=== PATIENT | female | born 1975 | race Caucasian/White ===

== ENCOUNTER 2016-05-22 11:17 | Emergency (ER) | payer BC, SELFPAY ==
[~2016-05-22] VITALS: Ht 162.6 cm; Wt 113.4 kg
[~2016-05-22 11:17] MED LIST: CIPR500T89 PO; COMP1TAB PO; FLAG500T PO; OMEP10CASR PO; PANT40TA2 PO; PERC5TAB6 PO; REGL10TA6 PO; SIME40TA PO; SUCR1TA PO; TRAM50TA2 PO; ZANT1TAB PO; ZOFR20TA PO
[2016-05-22] MEDS ORDERED: LEXA1TAB PO (11:26)
[2016-05-22] MEDS ORDERED: methylPREDNISolone INJ 40 MG/1 ML VIAL (J2920) IV ONE (13:30)
[2016-05-22] MEDS ORDERED: diphenhydrAMINE INJ 50MG/ML VIAL (J1200) IV ONE (13:30)
[2016-05-22] MEDS ORDERED: METOCLOPRAMIDE INJ 10MG/2ML VIAL (J2765) IV ONE (13:30)
--- NOTE | 2016-05-22 13:53 | REP ---
CT Head without contrast HISTORY: Headache COMPARISON: None There is no intraparenchymal hemorrhage, acute infarct, mass or midline shift. The ventricular system is normal in appearance. There is no extra cerebral collection. There is no fracture. The visualized sinuses are clear. IMPRESSION: There is no intracranial lesion. Signed by Tucker Castro MD 05/22/2016 01:44 P
[2016-05-22] MEDS ORDERED: NS 1,000 ML IV ONE (14:15)
[2016-05-22 14:26] LABS: BLOOD UREA NITROGEN 12 MG/DL (7-18); CALCIUM LEVEL 9.1 MG/DL (8.5-10.1); CARBON DIOXIDE LEVEL 27 MEQ/L (21-32); CHLORIDE LEVEL 107 MEQ/L (98-107); CREATININE FOR GFR 0.78 MG/DL (0.55-1.02); GLUCOSE, FASTING 98 MG/DL (70-105); POTASSIUM SERUM 5.1 MEQ/L (3.5-5.1); SODIUM LEVEL 141 MEQ/L (136-145)
[2016-05-22 14:29] LABS: BASO % 0.3 % (0.0-1.0); EOS # 0.2 K/mm3 (0.0-0.50); EOS % 2.6 % (0.0-3.0); LARGE UNSTAINED CELL # 0.2 K/mm3 (0.0-0.4); LARGE UNSTAINED CELL % 1.7 % (0.0-4.0); LYMPH # 2.2 K/mm3 (1.5-4.5); LYMPH % 24.8 % (24.0-44.0); MEAN CORPUSCULAR HEMOGLOBIN 30.1 pg (27.0-33.0); MEAN CORPUSCULAR HGB CONC 33.7 g/dl (32.0-36.5); MEAN CORPUSCULAR VOLUME 89.3 fl (80.0-96.0); MONO # 0.6 K/mm3 (0.0-0.8); MONO % 6.1 % (0.0-5.0); NEUTROPHILS # 5.8 K/mm3 (1.8-7.7); NEUTROPHILS % 64.4 % (36.0-66.0); PLATELET COUNT, AUTOMATED 270 k/mm3 (150-450); RED CELL DISTRIBUTION WIDTH 12.3 % (11.5-14.5)
[2016-05-22 14:38] LABS: ANION GAP 7 MEQ/L (8-16)
[2016-05-22 15:19] VITALS: BP 124/83
[2016-05-23] MEDS ORDERED: KETO10TAB PO (08:23)
== END 2016-05-22 15:45 | disposition home or self-care (01) ==
LOC: M ED 13:18
DX: G43.109 Migraine with aura, not intractable, without status migrainosus (principal); Z91.030 Bee allergy status; Z79.899 Other long term (current) drug therapy
CPT/HCPCS: 70450; 80048; 85025; 86140; 96361; 96374; 96375; 99282; J1200; J2765; J2920

== ENCOUNTER 2016-05-23 07:08 | Emergency (ER) | payer SELFPAY ==
[~2016-05-23] VITALS: Ht 162.6 cm; Wt 113.4 kg
[~2016-05-23 07:08] MED LIST changes: +LEXA1TAB PO
[2016-05-23] MEDS ORDERED: ACETAMINOPHEN 325 MG TAB PO ONE (07:45)
[2016-05-23] MEDS ORDERED: KETOROLAC 30 MG/ML VIAL (J1885) IM ONE (07:45)
[2016-05-23] MEDS ORDERED: KETO10TAB PO (08:23)
[2016-05-23 08:30] VITALS: BP 146/83
== END 2016-05-23 08:32 | disposition home or self-care (01) ==
LOC: M ED 07:42
DX: G43.909 Migraine, unspecified, not intractable, without status migrainosus (principal); F41.9 Anxiety disorder, unspecified; F32.9 Major depressive disorder, single episode, unspecified; F17.210 Nicotine dependence, cigarettes, uncomplicated; Z88.2 Allergy status to sulfonamides; Z91.030 Bee allergy status; Z91.048 Other nonmedicinal substance allergy status; Z79.899 Other long term (current) drug therapy
CPT/HCPCS: 96372; 99282; J1885

== ENCOUNTER 2016-06-11 06:40 | Emergency (ER) | payer BC, SELFPAY ==
[~2016-06-11] VITALS: Ht 162.6 cm; Wt 113.4 kg
[~2016-06-11 06:40] MED LIST changes: +KETO10TAB PO
[2016-06-11] MEDS ORDERED: ONDANSETRON 4MG/2ML VIAL (J2405) IV ONE (08:00)
[2016-06-11] MEDS ORDERED: MORPHINE 4 MG/ML 1ML SYRINGE IV PRN (08:00)
[2016-06-11] MEDS ORDERED: NS 1,000 ML IV ONE (08:00)
[2016-06-11 08:23] LABS: BASO % 0.4 % (0.0-1.0); EOS # 0.3 K/mm3 (0.0-0.50); EOS % 3.6 % (0.0-3.0); LARGE UNSTAINED CELL # 0.1 K/mm3 (0.0-0.4); LARGE UNSTAINED CELL % 1.5 % (0.0-4.0); LYMPH # 1.7 K/mm3 (1.5-4.5); LYMPH % 21.3 % (24.0-44.0); MEAN CORPUSCULAR HEMOGLOBIN 30.6 pg (27.0-33.0); MEAN CORPUSCULAR VOLUME 90.1 fl (80.0-96.0); MONO # 0.5 K/mm3 (0.0-0.8); MONO % 6.4 % (0.0-5.0); NEUTROPHILS % 66.8 % (36.0-66.0); PLATELET COUNT, AUTOMATED 255 k/mm3 (150-450); RED CELL DISTRIBUTION WIDTH 12.4 % (11.5-14.5); WHITE BLOOD COUNT 7.4 K/mm3 (4.0-10.0)
[2016-06-11 08:27] LABS: CONTROL LINE HCG INT CTR LINE PRESENT
--- NOTE | 2016-06-11 08:32 | REP ---
Clinical: Acute abdominal pain. Technique: Upright view of the chest with supine and upright views of the abdomen and pelvis. Findings: Frontal upright view of the chest demonstrates no acute cardiopulmonary process or free air below the diaphragm to suspect pneumoperitoneum. Supine and upright views of the abdomen and pelvis demonstrate nonspecific bowel gas pattern without obstruction or perforation. No organomegaly. No abnormal calcifications. Skeletal structures normal for age. Impression: Nonspecific bowel gas pattern. Signed by Ghassan Hart MD 06/11/2016 08:23 A
[2016-06-11 08:38] LABS: ALBUMIN 3.5 GM/DL (3.2-5.2); ALBUMIN/GLOBULIN RATIO 0.95 (1.00-1.93); ALKALINE PHOSPHATASE 60 U/L (45-117); ALT/SGPT 16 U/L (12-78); ANION GAP 6 MEQ/L (8-16); AST/SGOT 15 U/L (15-37); BILIRUBIN,DIRECT < 0.1 MG/DL (0.0-0.2); BILIRUBIN,TOTAL 0.4 MG/DL (0.2-1.0); BLOOD UREA NITROGEN 11 MG/DL (7-18); CARBON DIOXIDE LEVEL 25 MEQ/L (21-32); CHLORIDE LEVEL 109 MEQ/L (98-107); CREATININE FOR GFR 0.83 MG/DL (0.55-1.02); GLOMERULAR FILTRATION RATE > 60.0 (>58); GLUCOSE, FASTING 103 MG/DL (70-105); POTASSIUM SERUM 4.4 MEQ/L (3.5-5.1); SODIUM LEVEL 140 MEQ/L (136-145); TOTAL PROTEIN 7.2 GM/DL (6.4-8.2)
[2016-06-11] MEDS ORDERED: GASTROGRAFIN SOLUTION 30ML PO ONE (09:45)
[2016-06-11] MEDS ORDERED: GASTROGRAFIN SOLUTION 30ML (Q9963) As Ordered ONE (09:45)
[2016-06-11] MEDS ORDERED: GASTROGRAFIN SOLUTION 30ML (Q9963) PO ONE (10:15)
[2016-06-11] MEDS ORDERED: ISOVUE-370 76% 100ML VIAL (Q9967) As Ordered ONE (11:08)
--- NOTE | 2016-06-11 11:39 | REP ---
Clinical: Lower abdominal pain. Diverticulitis. Technique: Axial contrast enhanced images from the lung bases to the pubic symphysis using oral and 100 ml Isovue 370 intravenous contrast material with coronal and sagittal re-formations. Comparison: 03/29/2015. Findings: Lung bases clear. Visualized heart and pericardium normal. Mild fatty infiltration to the liver suggested without focal hepatic lesion. Spleen, pancreas, bilateral adrenal glands and kidneys are normal. The patient is status post cholecystectomy. The enteric system is without obstruction or acute inflammatory process no significant diverticulosis or diverticulitis noted. Pelvis demonstrates normal bladder and age-appropriate uterus/adnexa. No pelvic fluid or ascites. No free air. No intraperitoneal or retroperitoneal adenopathy. Abdominal aorta and vasculature normal. Musculoskeletal structures without focal osseous abnormality. Impression: No acute intra-abdominal or pelvic pathology appreciated. Signed by Ghassan Hart MD 06/11/2016 11:31 A
[2016-06-11] MEDS ORDERED: TRAM50TA2 PO (12:21)
[2016-06-11 12:56] VITALS: BP 118/56
--- NOTE | 2016-06-12 20:38 | ECGEPIP ---
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
== END 2016-06-11 12:57 | disposition home or self-care (01) ==
LOC: M ED 08:26
DX: R07.89 Other chest pain (principal); R10.10 Upper abdominal pain, unspecified; F33.9 Major depressive disorder, recurrent, unspecified; Z88.2 Allergy status to sulfonamides; Z91.030 Bee allergy status; Z91.048 Other nonmedicinal substance allergy status; Z87.19 Personal history of other diseases of the digestive system
CPT/HCPCS: 74022; 74177; 80048; 80076; 82550; 82553; 83605; 83690; 84703; 85025; 93005; 93041; 94760; 96374; 96375; 99285; J2405; Q9963; Q9967

== ENCOUNTER → 2016-11-12 | Outpatient (CLI) | payer BC ==
[~2016-11-12] MED LIST changes: +CIPR-249 PO; -CIPR500T89 PO; +PERC5TAB12 PO; -PERC5TAB6 PO
== END ==
LOC: M LAB 14:15
DX: R76.11 Nonspecific reaction to tuberculin skin test without active tuberculosis (principal)

== ENCOUNTER → 2017-01-01 | Outpatient (REF) | payer BC ==
[~2017-01-01] MED LIST changes: +DOXY-278 PO
== END ==
LOC: M SFHCCAPE 13:33
PROVIDERS: ATTEND Physician Assistant
DX: H66.001 Acute suppurative otitis media without spontaneous rupture of ear drum, right ear (principal)

== ENCOUNTER → 2017-01-31 | Outpatient (CLI) | payer BC ==
[2017-01-31 09:15] LABS: BASO # 0.1 10^3/uL (0.0-0.2); BASO % 0.6 % (0.0-1.0); EOS # 0.3 10^3/uL (0.0-0.50); IMMATURE GRANULOCYTE % 0.8 % (0-0); LYMPH # 2.5 10^3/uL (1.5-4.5); LYMPH % 28.1 % (24.0-44.0); MEAN CORPUSCULAR HEMOGLOBIN 30.2 pg (27.0-33.0); MEAN CORPUSCULAR HGB CONC 33.6 g/dl (32.0-36.5); MEAN CORPUSCULAR VOLUME 89.9 fl (80.0-96.0); MONO # 0.6 10^3/uL (0.0-0.8); MONO % 6.6 % (0.0-5.0); NEUTROPHILS # 5.4 10^3/uL (1.8-7.7); NEUTROPHILS % 60.9 % (36.0-66.0); PLATELET COUNT, AUTOMATED 277 10^3/uL (150-450); RED CELL DISTRIBUTION WIDTH 12.7 % (11.5-14.5); WHITE BLOOD COUNT 8.9 10^3/uL (4.0-10.0)
[2017-01-31 09:41] LABS: ALBUMIN 3.8 GM/DL (3.2-5.2); ALBUMIN/GLOBULIN RATIO 1.19 (1.00-1.93); ALKALINE PHOSPHATASE 67 U/L (45-117); ALT/SGPT 17 U/L (12-78); ANION GAP 9 MEQ/L (8-16); AST/SGOT 14 U/L (7-37); BILIRUBIN,TOTAL 0.5 MG/DL (0.2-1.0); BLOOD UREA NITROGEN 11 MG/DL (7-18); CALCIUM LEVEL 9.1 MG/DL (8.5-10.1); CARBON DIOXIDE LEVEL 24 MEQ/L (21-32); CHLORIDE LEVEL 106 MEQ/L (98-107); CHOLESTEROL LEVEL 252 MG/DL (<200); CREATININE FOR GFR 0.89 MG/DL (0.55-1.02); FREE T4 1.13 NG/DL (0.76-1.46); GLOMERULAR FILTRATION RATE > 60.0 (>58); GLUCOSE, FASTING 128 MG/DL (70-105); POTASSIUM SERUM 4.5 MEQ/L (3.5-5.1); SODIUM LEVEL 139 MEQ/L (136-145); TRIGLYCERIDES LEVEL 159 MG/DL (<150)
== END ==
LOC: M LAB 08:07
PROVIDERS: ATTEND Physician Assistant
DX: E78.5 Hyperlipidemia, unspecified (principal); E66.01 Morbid (severe) obesity due to excess calories

== ENCOUNTER 2017-02-03 15:51 | Emergency (ER) | payer BC ==
[~2017-02-03] VITALS: Ht 157.5 cm; Wt 120.5 kg
[2017-02-03 15:51] VITALS: BP 127/86
[~2017-02-03 15:51] MED LIST changes: -DOXY-278 PO
[2017-02-03] MEDS ORDERED: DOXY-278 PO (18:12)
== END 2017-02-03 18:21 | disposition home or self-care (01) ==
LOC: M ED 15:51
DX: L03.818 Cellulitis of other sites (principal); Z87.2 Personal history of diseases of the skin and subcutaneous tissue; Z87.891 Personal history of nicotine dependence; Z91.030 Bee allergy status; Z91.89 Other specified personal risk factors, not elsewhere classified; Z88.1 Allergy status to other antibiotic agents

== ENCOUNTER 2017-02-05 06:21 | Emergency (ER) | payer BC ==
[~2017-02-05] VITALS: Ht 162.6 cm; Wt 120.0 kg
[~2017-02-05 06:21] MED LIST changes: +DOXY-278 PO
[2017-02-05 06:43] VITALS: BP 161/76
[2017-02-05] MEDS ORDERED: CLEO300C2 PO (07:06)
[2017-02-05] MEDS ORDERED: NORCOTAB PO (07:06)
[2017-02-05] MEDS ORDERED: NORCO, ANEXSIA 5/325MG TABLET (HYDROcodone/ACETAMINOPHEN) PO ONE (07:15)
== END 2017-02-05 07:25 | disposition home or self-care (01) ==
LOC: M ED 06:21
DX: L02.31 Cutaneous abscess of buttock (principal); F41.9 Anxiety disorder, unspecified; F32.9 Major depressive disorder, single episode, unspecified; F19.10 Other psychoactive substance abuse, uncomplicated; Z86.14 Personal history of Methicillin resistant Staphylococcus aureus infection; F17.200 Nicotine dependence, unspecified, uncomplicated; Z91.030 Bee allergy status; Z88.1 Allergy status to other antibiotic agents; Z91.89 Other specified personal risk factors, not elsewhere classified

== ENCOUNTER → 2017-04-07 | Outpatient (REF) | payer BC | LOC: M SFHCCAPE 16:14 | DX: K61.2 Anorectal abscess (principal) | CPT/HCPCS: 87070 ==

== ENCOUNTER → 2017-04-21 | Outpatient (REF) | payer BC | LOC: M SFHCPLAZ 11:30 | DX: L02.93 Carbuncle, unspecified (principal) | CPT/HCPCS: 87205 ==

== ENCOUNTER 2017-04-27 07:38 | Emergency (ER) | payer BC ==
[2017-04-27 08:19] LABS: BASO % 0.2 % (0.0-1.0); EOS # 0.2 10^3/uL (0.0-0.50); EOS % 2.4 % (0.0-3.0); HEMATOCRIT 40.1 % (36.0-47.0); HEMOGLOBIN 13.5 g/dl (12.0-16.0); IMMATURE GRANULOCYTE # 0.1 10^3/uL (0-0); IMMATURE GRANULOCYTE % 0.6 % (0-0); LYMPH # 1.8 10^3/uL (1.5-4.5); LYMPH % 20.9 % (24.0-44.0); MEAN CORPUSCULAR HEMOGLOBIN 30.3 pg (27.0-33.0); MEAN CORPUSCULAR HGB CONC 33.7 g/dl (32.0-36.5); MEAN CORPUSCULAR VOLUME 90.1 fl (80.0-96.0); MONO # 0.5 10^3/uL (0.0-0.8); MONO % 5.2 % (0.0-5.0); NEUTROPHILS # 6.1 10^3/uL (1.8-7.7); NEUTROPHILS % 70.7 % (36.0-66.0); PLATELET COUNT, AUTOMATED 242 10^3/uL (150-450); RED BLOOD COUNT 4.45 10^6/uL (4.00-5.40); RED CELL DISTRIBUTION WIDTH 12.7 % (11.5-14.5); WHITE BLOOD COUNT 8.6 10^3/uL (4.0-10.0)
[2017-04-27 08:48] LABS: ALBUMIN 3.6 GM/DL (3.2-5.2); ALKALINE PHOSPHATASE 63 U/L (45-117); ALT/SGPT 11 U/L (12-78); ANION GAP 10 MEQ/L (8-16); AST/SGOT 10 U/L (7-37); BILIRUBIN,DIRECT 0.1 MG/DL (0.0-0.2); BILIRUBIN,TOTAL 0.4 MG/DL (0.2-1.0); BLOOD UREA NITROGEN 12 MG/DL (7-18); CALCIUM LEVEL 8.9 MG/DL (8.5-10.1); CARBON DIOXIDE LEVEL 22 MEQ/L (21-32); CHLORIDE LEVEL 107 MEQ/L (98-107); CPK CREATINE PHOSPHOKINASE 80 U/L (26-192); CREATININE FOR GFR 0.71 MG/DL (0.55-1.30); GLOMERULAR FILTRATION RATE > 60.0 (>58); GLUCOSE, FASTING 123 MG/DL (70-100); LIPASE 120 U/L (73-393); MB/CK RELATIVE INDEX 1.25 (< OR =4); POTASSIUM SERUM 4.2 MEQ/L (3.5-5.1); SODIUM LEVEL 139 MEQ/L (136-145); TOTAL PROTEIN 7.2 GM/DL (6.4-8.2); TROPONIN I < 0.02 NG/ML (< 0.10)
[2017-04-27 08:49] LABS: NT-PRO BNP 147 PG/ML (<125)
[2017-04-27] MEDS: ONDANSETRON 4MG/2ML VIAL (J2405) IV (08:49)
[2017-04-27] MEDS: MECLIZINE 12.5 MG TAB PO (08:49)
== END 2017-04-27 10:59 | disposition home or self-care (01) ==
LOC: M ED 07:38
DX: R07.9 Chest pain, unspecified (principal); R42 Dizziness and giddiness; R51 Headache; F41.9 Anxiety disorder, unspecified; F32.9 Major depressive disorder, single episode, unspecified; F17.200 Nicotine dependence, unspecified, uncomplicated; I51.7 Cardiomegaly; Z82.49 Family history of ischemic heart disease and other diseases of the circulatory system; Z80.1 Family history of malignant neoplasm of trachea, bronchus and lung; Z79.899 Other long term (current) drug therapy; Z91.030 Bee allergy status; Z91.89 Other specified personal risk factors, not elsewhere classified; Z88.1 Allergy status to other antibiotic agents
CPT/HCPCS: J2405

== ENCOUNTER → 2017-05-09 | Outpatient (CLI) | payer BC ==
[2017-05-09 09:27] LABS: ALBUMIN 3.6 GM/DL (3.2-5.2); ALBUMIN/GLOBULIN RATIO 1.06 (1.00-1.93); ALKALINE PHOSPHATASE 66 U/L (45-117); ALT/SGPT 14 U/L (12-78); ANION GAP 8 MEQ/L (8-16); AST/SGOT 14 U/L (7-37); BILIRUBIN,TOTAL 0.4 MG/DL (0.2-1.0); BLOOD UREA NITROGEN 12 MG/DL (7-18); CALCIUM LEVEL 8.8 MG/DL (8.5-10.1); CARBON DIOXIDE LEVEL 25 MEQ/L (21-32); CHLORIDE LEVEL 106 MEQ/L (98-107); CHOLESTEROL LEVEL 264 MG/DL (<200); CREATININE FOR GFR 0.66 MG/DL (0.55-1.30); GLOMERULAR FILTRATION RATE > 60.0 (>58); GLUCOSE, FASTING 162 MG/DL (70-100); HDL CHOLESTEROL 40 MG/DL (>40); LDL CHOLESTEROL 187.6 MG/DL (<100); NON-HDL-C 224 MG/DL; SODIUM LEVEL 139 MEQ/L (136-145); TRIGLYCERIDES LEVEL 182 MG/DL (<150)
[2017-05-09 09:58] LABS: ESTIMATED AVERAGE GLUCOSE 148 MG/DL (60-110); HEMOGLOBIN A1c 6.8 %
== END ==
LOC: M LAB 08:33
DX: E78.2 Mixed hyperlipidemia (principal); R73.01 Impaired fasting glucose
CPT/HCPCS: 80053

== ENCOUNTER → 2017-05-09 | Outpatient (CLI) | payer BC ==
[2017-05-09 09:37] LABS: IMMUNOGLOBULIN G 1050 MG/DL (681-1648); IMMUNOGLOBULIN M 54.6 MG/DL (40-230)
[2017-05-12 00:06] LABS: IMMUNOGLOBULIN D 3.13 mg/dL (<14.11)
== END ==
LOC: M LAB 08:37
DX: L02.93 Carbuncle, unspecified (principal)
CPT/HCPCS: 82785

== ENCOUNTER → 2017-05-19 | Outpatient (CLI) | payer BC | LOC: M RAD 12:05 | DX: L03.113 Cellulitis of right upper limb (principal) ==

== ENCOUNTER → 2017-07-07 | Outpatient (REF) | payer BC | LOC: M SFHCPLAZ 15:22 | DX: L02.93 Carbuncle, unspecified (principal) | CPT/HCPCS: 87186 ==

== ENCOUNTER → 2017-08-01 | Outpatient (CLI) | payer BC ==
[2017-08-01 09:13] LABS: BASO % 0.3 % (0.0-1.0); EOS # 0.2 10^3/uL (0.0-0.50); EOS % 2.4 % (0.0-3.0); HEMATOCRIT 40.3 % (36.0-47.0); HEMOGLOBIN 13.8 g/dl (12.0-15.5); IMMATURE GRANULOCYTE # 0.1 10^3/uL (0-0); IMMATURE GRANULOCYTE % 0.6 % (0-3.0); LYMPH # 2.1 10^3/uL (1.5-4.5); LYMPH % 22.4 % (24.0-44.0); MEAN CORPUSCULAR HEMOGLOBIN 30.7 pg (27.0-33.0); MEAN CORPUSCULAR HGB CONC 34.2 g/dl (32.0-36.5); MEAN CORPUSCULAR VOLUME 89.8 fl (80.0-96.0); MONO # 0.6 10^3/uL (0.0-0.8); MONO % 5.8 % (0.0-5.0); NEUTROPHILS # 6.5 10^3/uL (1.8-7.7); NEUTROPHILS % 68.5 % (36.0-66.0); PLATELET COUNT, AUTOMATED 242 10^3/uL (150-450); RED BLOOD COUNT 4.49 10^6/uL (4.00-5.40); WHITE BLOOD COUNT 9.5 10^3/uL (4.0-10.0)
== END ==
LOC: M LAB 08:35
DX: J30.1 Allergic rhinitis due to pollen (principal); L08.9 Local infection of the skin and subcutaneous tissue, unspecified; D71 Functional disorders of polymorphonuclear neutrophils; J30.81 Allergic rhinitis due to animal (cat) (dog) hair and dander
CPT/HCPCS: 85027

== ENCOUNTER → 2017-08-01 | Outpatient (CLI) | payer BC ==
[2017-08-01 09:25] LABS: ALBUMIN 3.5 GM/DL (3.2-5.2); ALKALINE PHOSPHATASE 63 U/L (45-117); ALT/SGPT 17 U/L (12-78); ANION GAP 6 MEQ/L (8-16); AST/SGOT 15 U/L (7-37); BILIRUBIN,TOTAL 0.4 MG/DL (0.2-1.0); BLOOD UREA NITROGEN 11 MG/DL (7-18); CALCIUM LEVEL 8.9 MG/DL (8.5-10.1); CARBON DIOXIDE LEVEL 26 MEQ/L (21-32); CHLORIDE LEVEL 108 MEQ/L (98-107); CHOLESTEROL LEVEL 178 MG/DL (<200); CHOLESTEROL RISK RATIO 5.085 (<5); CREATININE FOR GFR 0.74 MG/DL (0.55-1.30); GLOMERULAR FILTRATION RATE > 60.0 (>58); GLUCOSE, FASTING 111 MG/DL (70-100); HDL CHOLESTEROL 35 MG/DL (>40); LDL CHOLESTEROL 110.4 MG/DL (<100); NON-HDL-C 143 MG/DL; POTASSIUM SERUM 4.4 MEQ/L (3.5-5.1); SODIUM LEVEL 140 MEQ/L (136-145); TRIGLYCERIDES LEVEL 163 MG/DL (<150)
[2017-08-01 10:00] LABS: ESTIMATED AVERAGE GLUCOSE 137 MG/DL (60-110); HEMOGLOBIN A1c 6.4 %
== END ==
LOC: M LAB 08:37
DX: E11.69 Type 2 diabetes mellitus with other specified complication (principal); E78.2 Mixed hyperlipidemia
CPT/HCPCS: 80053

== ENCOUNTER → 2017-08-03 | Outpatient (CLI) | payer BC | LOC: M LAB 15:47 | DX: Z13.79 Encounter for other screening for genetic and chromosomal anomalies (principal) | CPT/HCPCS: 36415 ==

== ENCOUNTER → 2017-08-11 | Outpatient (REF) | payer BC ==
[2017-08-11 15:02] LABS: CHLAMYDIA DNA AMPLIFICATION NEGATIVE (NEGATIVE); GC DNA AMPLIFICATION NEGATIVE (NEGATIVE)
[2017-08-12 08:06] LABS: HSV TYPE II IgG SPECIFIC <0.91 index (0.00-0.90)
[2017-08-12 10:02] LABS: HIV 1&2 SCREEN CENTAUR NEGATIVE (NEGATIVE)
[2017-08-12 10:02] LABS: HEPATITIS C VIRUS ABY INDEX < 0.0 INDEX (<0.8)
== END ==
LOC: M SFHCPLAZ 08:19
DX: Z72.51 High risk heterosexual behavior (principal)
CPT/HCPCS: 86803

== ENCOUNTER → 2017-12-03 | Outpatient (REF) | payer BC | LOC: M SFHCPLAZ 13:14 | DX: L02.93 Carbuncle, unspecified (principal) | CPT/HCPCS: 87186 ==

== ENCOUNTER → 2017-12-03 | Outpatient (REF) | payer BC ==
[2017-12-03 14:58] LABS: IMMUNOGLOBULIN G 1100 MG/DL (681-1648); IMMUNOGLOBULIN M 60 MG/DL (40-230)
[2017-12-09 08:09] LABS: IgG SERUM (part of Subclasses) 958 mg/dL (700-1600); IgG Subclass 1 395 mg/dL (248-810); IgG Subclass 2 517 mg/dL (130-555); IgG Subclass 3 32 mg/dL (15-102); IgG Subclass 4 163 mg/dL (2-96)
== END ==
LOC: M SFHCPLAZ 11:40
DX: L02.93 Carbuncle, unspecified (principal); R76.8 Other specified abnormal immunological findings in serum
CPT/HCPCS: 82785